=== PATIENT | female | born 1940 ===

== ENCOUNTER 2019-09-03 18:30 | Inpatient (IN) ==
[2019-09-03] MEDS: Doxycycline 100 MG CAPSULE PO SCH (21:20)
[2019-09-04] MEDS: Furosemide 20 MG TABLET PO SCH (08:19)
[2019-09-04] MEDS: Multivit/Ca/Min/Fe/FA 1 TAB TABLET PO SCH (08:19)
[2019-09-04] MEDS: Doxycycline 100 MG CAPSULE PO SCH ×2 (08:19→20:20)
[2019-09-05] MEDS: Doxycycline 100 MG CAPSULE PO SCH ×2 (09:00→19:59)
[2019-09-05] MEDS: Multivit/Ca/Min/Fe/FA 1 TAB TABLET PO SCH (09:00)
[2019-09-05] MEDS: Furosemide 20 MG TABLET PO SCH (09:00)
[2019-09-06] MEDS: *HR* Enoxaparin 30 MG/0.3 ML SYRINGE SQ SCH (05:59)
[2019-09-06] MEDS: Multivit/Ca/Min/Fe/FA 1 TAB TABLET PO SCH (08:35)
[2019-09-06] MEDS: Doxycycline 100 MG CAPSULE PO SCH ×2 (08:35→19:36)
[2019-09-06] MEDS: Bumetanide 1 MG TABLET PO SCH (08:35)
[2019-09-07] MEDS: *HR* Enoxaparin 30 MG/0.3 ML SYRINGE SQ SCH (06:24)
[2019-09-07] MEDS: Multivit/Ca/Min/Fe/FA 1 TAB TABLET PO SCH (09:01)
[2019-09-07] MEDS: Bumetanide 1 MG TABLET PO SCH (09:01)
[2019-09-07] MEDS: Doxycycline 100 MG CAPSULE PO SCH ×2 (09:01→21:27)
[2019-09-08] MEDS: *HR* Enoxaparin 30 MG/0.3 ML SYRINGE SQ SCH (05:46)
[2019-09-08] MEDS: Bumetanide 1 MG TABLET PO SCH (07:49)
[2019-09-08] MEDS: Doxycycline 100 MG CAPSULE PO SCH (07:49)
[2019-09-08] MEDS: Multivit/Ca/Min/Fe/FA 1 TAB TABLET PO SCH (07:49)
[2019-09-08] MEDS: Lactobacillus 1 EACH CAP.SPRINK PO SCH (20:39)
[2019-09-09] MEDS: *HR* Enoxaparin 30 MG/0.3 ML SYRINGE SQ SCH (06:30)
[2019-09-09 06:38] LABS: Hematocrit 35.3 % (35.3-44.9); Hemoglobin 11.5 g/dL (11.5-15.4); Mean Corpuscular HGB Conc 32.6 g/dL (31.6-35.5); Mean Corpuscular Hemoglobin 29.9 pg (28.0-33.3); Mean Corpuscular Volume 91.9 fL (83.0-100.0); Mean Platelet Volume 11.2 fL (9.4-12.4); Platelet Count 253 K/mcL (140-400); Red Blood Count 3.84 M/mcL (3.82-4.97)
[2019-09-09 06:48] LABS: Calcium 7.4 mg/dL (8.6-10.3); Magnesium 1.9 mg/dL (1.6-2.6); Potassium 4.1 mEq/L (3.5-5.1)
[2019-09-09 07:21] LABS: Basophils # 0.3 K/mcL (0.0-0.2); Monocytes # 0.3 K/mcL (0.0-1.3)
[2019-09-09 07:22] LABS: Platelet Estimate Normal (Normal); Smudge Cells Present (Not Present)
[2019-09-09] MEDS: Multivit/Ca/Min/Fe/FA 1 TAB TABLET PO SCH (07:44)
[2019-09-09] MEDS: Bumetanide 1 MG TABLET PO SCH (07:44)
[2019-09-09] MEDS: Lactobacillus 1 EACH CAP.SPRINK PO SCH ×2 (07:44→21:26)
[2019-09-10] MEDS ORDERED: Ondansetron ODT 4 MG TAB.RAPDIS SL PRN (04:27)
[2019-09-10] MEDS ORDERED: *HR* HYDROcodone/Acet 5/325 mg TABLET PO PRN (04:28)
[2019-09-10] MEDS: *HR* Enoxaparin 30 MG/0.3 ML SYRINGE SQ SCH (06:08)
[2019-09-10] MEDS: Bumetanide 1 MG TABLET PO SCH (10:15)
[2019-09-10] MEDS: Lactobacillus 1 EACH CAP.SPRINK PO SCH ×2 (10:15→19:52)
[2019-09-10] MEDS: Multivit/Ca/Min/Fe/FA 1 TAB TABLET PO SCH (10:15)
[2019-09-10] MEDS: Metoprolol XL (24 HR) Succ 25 MG TAB.ER.24H PO SCH (13:24)
[2019-09-11] MEDS: *HR* Enoxaparin 30 MG/0.3 ML SYRINGE SQ SCH (06:01)
[2019-09-11 07:49] LABS: Basophils % 0.3 %; Eosinophils # 0.1 K/mcL (0.0-0.6); Eosinophils % 0.5 %; Hematocrit 30.6 % (35.3-44.9); Immature Granulocytes % 0.3 % (0-4); Lymphocytes # 10.5 K/mcL (0.6-4.6); Lymphocytes % 66.3 %; Mean Corpuscular HGB Conc 32.7 g/dL (31.6-35.5); Mean Corpuscular Hemoglobin 29.7 pg (28.0-33.3); Mean Corpuscular Volume 90.8 fL (83.0-100.0); Mean Platelet Volume 10.7 fL (9.4-12.4); Monocytes # 0.4 K/mcL (0.0-1.3); Monocytes % 2.8 %; Neutrophils # 4.7 K/mcL (1.6-8.9); Nucleated Red Blood Cells 0.1 /100 WBC (0); Platelet Count 113 K/mcL (140-400); Red Blood Count 3.37 M/mcL (3.82-4.97); Red Cell Distribution Width 15.9 % (11.5-14.5); Segmented Neutrophils % 29.8 %; White Blood Count 15.8 K/mcL (4.3-11.1)
[2019-09-11 08:00] LABS: BUN/Creatinine Ratio 21 (6-26); Blood Urea Nitrogen 22 mg/dL (8-23); Calcium 7.3 mg/dL (8.6-10.3); Carbon Dioxide 28 mEq/L (23-29); Chloride 105 mEq/L (98-107); Glucose 84 mg/dL (70-105); Magnesium 1.9 mg/dL (1.6-2.6); Osmolality,Calculated 289 (280-300); Potassium 4.1 mEq/L (3.5-5.1); Sodium 138 mEq/L (136-145); eGFR For African Americans > 60 (> 60); eGFR For Non-African Americans 50 (> 60)
[2019-09-11 08:04] LABS: Basophils # 0.1 K/mcL (0.0-0.2)
[2019-09-11 08:08] LABS: Platelet Clumps Few (Not Present); Platelet Estimate Decreased (Normal)
[2019-09-11] MEDS: Multivit/Ca/Min/Fe/FA 1 TAB TABLET PO SCH (10:33)
[2019-09-11] MEDS: Lactobacillus 1 EACH CAP.SPRINK PO SCH ×2 (10:33→22:00)
[2019-09-11] MEDS: Metoprolol XL (24 HR) Succ 25 MG TAB.ER.24H PO SCH (10:33)
[2019-09-11] MEDS: Bumetanide 1 MG TABLET PO SCH (10:34)
[2019-09-12] MEDS: *HR* Enoxaparin 40 MG/0.4 ML SYRINGE SQ SCH (06:56)
[2019-09-12] MEDS: Lactobacillus 1 EACH CAP.SPRINK PO SCH ×2 (10:04→22:00)
[2019-09-12] MEDS: Multivit/Ca/Min/Fe/FA 1 TAB TABLET PO SCH (10:04)
[2019-09-12] MEDS: Bumetanide 1 MG TABLET PO SCH (10:04)
[2019-09-12] MEDS: Metoprolol XL (24 HR) Succ 25 MG TAB.ER.24H PO SCH (10:04)
[2019-09-13] MEDS: *HR* Enoxaparin 40 MG/0.4 ML SYRINGE SQ SCH (06:15)
[2019-09-13] MEDS: Lactobacillus 1 EACH CAP.SPRINK PO SCH ×2 (09:13→20:34)
[2019-09-13] MEDS: Metoprolol XL (24 HR) Succ 25 MG TAB.ER.24H PO SCH (09:13)
[2019-09-13] MEDS: Bumetanide 1 MG TABLET PO SCH (09:14)
[2019-09-13] MEDS: Multivit/Ca/Min/Fe/FA 1 TAB TABLET PO SCH (09:14)
[2019-09-14] MEDS: *HR* Enoxaparin 40 MG/0.4 ML SYRINGE SQ SCH (06:38)
[2019-09-14] MEDS: Bumetanide 1 MG TABLET PO SCH (08:33)
[2019-09-14] MEDS: Multivit/Ca/Min/Fe/FA 1 TAB TABLET PO SCH (08:33)
[2019-09-14] MEDS: Metoprolol XL (24 HR) Succ 25 MG TAB.ER.24H PO SCH (08:33)
[2019-09-14] MEDS: Lactobacillus 1 EACH CAP.SPRINK PO SCH ×2 (08:34→20:49)
[2019-09-15] MEDS: *HR* Enoxaparin 40 MG/0.4 ML SYRINGE SQ SCH (06:15)
[2019-09-15] MEDS: Bumetanide 1 MG TABLET PO SCH (07:58)
[2019-09-15] MEDS: Lactobacillus 1 EACH CAP.SPRINK PO SCH ×2 (07:58→20:13)
[2019-09-15] MEDS: Metoprolol XL (24 HR) Succ 25 MG TAB.ER.24H PO SCH (07:58)
[2019-09-15] MEDS: Multivit/Ca/Min/Fe/FA 1 TAB TABLET PO SCH (07:58)
[2019-09-16] MEDS: *HR* Enoxaparin 40 MG/0.4 ML SYRINGE SQ SCH (06:30)
[2019-09-16 07:30] LABS: Basophils # 0.1 K/mcL (0.0-0.2); Basophils % 0.4 %; Eosinophils % 1.1 %; Hematocrit 31.2 % (35.3-44.9); Hemoglobin 10.4 g/dL (11.5-15.4); Immature Granulocytes % 0.3 % (0-4); Lymphocytes # 8.4 K/mcL (0.6-4.6); Lymphocytes % 64.2 %; Mean Corpuscular HGB Conc 33.3 g/dL (31.6-35.5); Mean Corpuscular Hemoglobin 29.8 pg (28.0-33.3); Mean Corpuscular Volume 89.4 fL (83.0-100.0); Mean Platelet Volume 10.7 fL (9.4-12.4); Monocytes # 0.6 K/mcL (0.0-1.3); Monocytes % 4.2 %; Neutrophils # 3.9 K/mcL (1.6-8.9); Platelet Count 244 K/mcL (140-400); Red Blood Count 3.49 M/mcL (3.82-4.97); Red Cell Distribution Width 15.9 % (11.5-14.5); Segmented Neutrophils % 29.8 %; White Blood Count 13.1 K/mcL (4.3-11.1)
[2019-09-16 07:48] LABS: Calcium 7.6 mg/dL (8.6-10.3); Eosinophils # 0.1 K/mcL (0.0-0.6); Potassium 4.2 mEq/L (3.5-5.1)
[2019-09-16 08:10] LABS: Platelet Estimate Normal (Normal)
[2019-09-16] MEDS: Metoprolol XL (24 HR) Succ 25 MG TAB.ER.24H PO SCH (09:19)
[2019-09-16] MEDS: Bumetanide 1 MG TABLET PO SCH (09:19)
[2019-09-16] MEDS: Multivit/Ca/Min/Fe/FA 1 TAB TABLET PO SCH (09:19)
[2019-09-16] MEDS: Lactobacillus 1 EACH CAP.SPRINK PO SCH ×2 (09:19→20:35)
[2019-09-17] MEDS: *HR* Enoxaparin 30 MG/0.3 ML SYRINGE SQ SCH (06:27)
[2019-09-17] MEDS: Bumetanide 1 MG TABLET PO SCH (09:06)
[2019-09-17] MEDS: Lactobacillus 1 EACH CAP.SPRINK PO SCH ×2 (09:06→20:28)
[2019-09-17] MEDS: Metoprolol XL (24 HR) Succ 25 MG TAB.ER.24H PO SCH (09:06)
[2019-09-17] MEDS: Multivit/Ca/Min/Fe/FA 1 TAB TABLET PO SCH (09:07)
[2019-09-18] MEDS: *HR* Enoxaparin 30 MG/0.3 ML SYRINGE SQ SCH (06:22)
[2019-09-18] MEDS: Bumetanide 1 MG TABLET PO SCH (08:16)
[2019-09-18] MEDS: Multivit/Ca/Min/Fe/FA 1 TAB TABLET PO SCH (08:16)
[2019-09-18] MEDS: Lactobacillus 1 EACH CAP.SPRINK PO SCH ×2 (08:16→20:05)
[2019-09-18] MEDS: Metoprolol XL (24 HR) Succ 25 MG TAB.ER.24H PO SCH ×2 (08:17→12:30)
[2019-09-19] MEDS: *HR* Enoxaparin 30 MG/0.3 ML SYRINGE SQ SCH (06:23)
[2019-09-19] MEDS: Metoprolol XL (24 HR) Succ 25 MG TAB.ER.24H PO SCH (08:10)
[2019-09-19] MEDS: Lactobacillus 1 EACH CAP.SPRINK PO SCH ×2 (08:10→20:25)
[2019-09-19] MEDS: Bumetanide 1 MG TABLET PO SCH (08:10)
[2019-09-19] MEDS: Multivit/Ca/Min/Fe/FA 1 TAB TABLET PO SCH (08:10)
[2019-09-19 08:18] LABS: Calcium 7.4 mg/dL (8.6-10.3); Potassium 3.8 mEq/L (3.5-5.1)
[2019-09-19] MEDS: *HR* Digoxin 0.125 MG TABLET PO SCH (18:20)
[2019-09-20] MEDS: *HR* Enoxaparin 30 MG/0.3 ML SYRINGE SQ SCH (06:53)
[2019-09-20] MEDS: Bumetanide 1 MG TABLET PO SCH (08:10)
[2019-09-20] MEDS: Metoprolol XL (24 HR) Succ 25 MG TAB.ER.24H PO SCH (08:10)
[2019-09-20] MEDS: Lactobacillus 1 EACH CAP.SPRINK PO SCH ×2 (08:10→21:54)
[2019-09-20] MEDS: *HR* Digoxin 0.125 MG TABLET PO SCH (08:10)
[2019-09-20] MEDS: Multivit/Ca/Min/Fe/FA 1 TAB TABLET PO SCH (08:10)
[2019-09-21] MEDS: *HR* Enoxaparin 30 MG/0.3 ML SYRINGE SQ SCH (06:32)
[2019-09-21] MEDS: Bumetanide 1 MG TABLET PO SCH (08:37)
[2019-09-21] MEDS: Multivit/Ca/Min/Fe/FA 1 TAB TABLET PO SCH (08:37)
[2019-09-21] MEDS: *HR* Digoxin 0.125 MG TABLET PO SCH (08:37)
[2019-09-21] MEDS: Lactobacillus 1 EACH CAP.SPRINK PO SCH ×2 (08:37→20:00)
[2019-09-21] MEDS: Metoprolol XL (24 HR) Succ 25 MG TAB.ER.24H PO SCH (08:37)
[2019-09-22] MEDS: *HR* Enoxaparin 30 MG/0.3 ML SYRINGE SQ SCH (06:27)
[2019-09-22] MEDS: Multivit/Ca/Min/Fe/FA 1 TAB TABLET PO SCH (08:42)
[2019-09-22] MEDS: Bumetanide 1 MG TABLET PO SCH (08:42)
[2019-09-22] MEDS: Metoprolol XL (24 HR) Succ 25 MG TAB.ER.24H PO SCH (08:42)
[2019-09-22] MEDS: Lactobacillus 1 EACH CAP.SPRINK PO SCH ×2 (08:43→21:09)
[2019-09-22] MEDS: *HR* Digoxin 0.125 MG TABLET PO SCH (08:43)
[2019-09-23] MEDS: *HR* Enoxaparin 30 MG/0.3 ML SYRINGE SQ SCH (06:01)
[2019-09-23 06:50] LABS: Calcium 7.6 mg/dL (8.6-10.3); Digoxin 0.7 ng/mL (0.8-2.0); Magnesium 1.9 mg/dL (1.6-2.6); Potassium 3.8 mEq/L (3.5-5.1)
[2019-09-23] MEDS: Bumetanide 1 MG TABLET PO SCH (09:01)
[2019-09-23] MEDS: Metoprolol XL (24 HR) Succ 25 MG TAB.ER.24H PO SCH (09:01)
[2019-09-23] MEDS: Multivit/Ca/Min/Fe/FA 1 TAB TABLET PO SCH (09:01)
[2019-09-23] MEDS: Lactobacillus 1 EACH CAP.SPRINK PO SCH ×2 (09:01→20:35)
[2019-09-23] MEDS: *HR* Digoxin 0.125 MG TABLET PO SCH (09:02)
[2019-09-24] MEDS: *HR* Enoxaparin 30 MG/0.3 ML SYRINGE SQ SCH (06:21)
[2019-09-24] MEDS: Bumetanide 1 MG TABLET PO SCH (08:23)
[2019-09-24] MEDS: Lactobacillus 1 EACH CAP.SPRINK PO SCH ×2 (08:23→20:54)
[2019-09-24] MEDS: *HR* Digoxin 0.125 MG TABLET PO SCH (08:24)
[2019-09-24] MEDS: Metoprolol XL (24 HR) Succ 25 MG TAB.ER.24H PO SCH (08:24)
[2019-09-24] MEDS: Multivit/Ca/Min/Fe/FA 1 TAB TABLET PO SCH (08:24)
[2019-09-25] MEDS: *HR* Enoxaparin 30 MG/0.3 ML SYRINGE SQ SCH (06:28)
[2019-09-25] MEDS: Metoprolol XL (24 HR) Succ 25 MG TAB.ER.24H PO SCH (07:25)
[2019-09-25] MEDS: *HR* Digoxin 0.125 MG TABLET PO SCH (07:25)
[2019-09-25] MEDS: Bumetanide 1 MG TABLET PO SCH (07:25)
[2019-09-25] MEDS: Lactobacillus 1 EACH CAP.SPRINK PO SCH ×2 (07:25→19:46)
[2019-09-25] MEDS: Multivit/Ca/Min/Fe/FA 1 TAB TABLET PO SCH (07:25)
[2019-09-26] MEDS: *HR* Enoxaparin 30 MG/0.3 ML SYRINGE SQ SCH (05:50)
[2019-09-26] MEDS: *HR* Digoxin 0.125 MG TABLET PO SCH (08:34)
[2019-09-26] MEDS: Bumetanide 1 MG TABLET PO SCH (08:34)
[2019-09-26] MEDS: Lactobacillus 1 EACH CAP.SPRINK PO SCH ×2 (08:34→19:49)
[2019-09-26] MEDS: Metoprolol XL (24 HR) Succ 25 MG TAB.ER.24H PO SCH (08:35)
[2019-09-26] MEDS: Multivit/Ca/Min/Fe/FA 1 TAB TABLET PO SCH (08:35)
[2019-09-27] MEDS: *HR* Enoxaparin 30 MG/0.3 ML SYRINGE SQ SCH (05:52)
[2019-09-27] MEDS: Lactobacillus 1 EACH CAP.SPRINK PO SCH ×2 (07:48→19:34)
[2019-09-27] MEDS: *HR* Digoxin 0.125 MG TABLET PO SCH (07:48)
[2019-09-27] MEDS: Metoprolol XL (24 HR) Succ 25 MG TAB.ER.24H PO SCH (07:49)
[2019-09-27] MEDS: Multivit/Ca/Min/Fe/FA 1 TAB TABLET PO SCH (07:49)
[2019-09-27] MEDS: Bumetanide 1 MG TABLET PO SCH (07:49)
[2019-09-28] MEDS: *HR* Enoxaparin 30 MG/0.3 ML SYRINGE SQ SCH (06:11)
[2019-09-28] MEDS: Lactobacillus 1 EACH CAP.SPRINK PO SCH ×2 (08:33→20:12)
[2019-09-28] MEDS: Multivit/Ca/Min/Fe/FA 1 TAB TABLET PO SCH (08:34)
[2019-09-28] MEDS: Bumetanide 1 MG TABLET PO SCH (08:34)
[2019-09-28] MEDS: *HR* Digoxin 0.125 MG TABLET PO SCH (08:35)
[2019-09-28] MEDS: Metoprolol XL (24 HR) Succ 25 MG TAB.ER.24H PO SCH (08:35)
[2019-09-29] MEDS: *HR* Enoxaparin 30 MG/0.3 ML SYRINGE SQ SCH (06:18)
[2019-09-29 07:06] VITALS: BP 143/70
[2019-09-29] MEDS: Bumetanide 1 MG TABLET PO SCH (09:00)
[2019-09-29] MEDS: Multivit/Ca/Min/Fe/FA 1 TAB TABLET PO SCH (09:01)
[2019-09-29] MEDS: *HR* Digoxin 0.125 MG TABLET PO SCH (09:01)
[2019-09-29] MEDS: Metoprolol XL (24 HR) Succ 25 MG TAB.ER.24H PO SCH (09:01)
[2019-09-29] MEDS: Lactobacillus 1 EACH CAP.SPRINK PO SCH (09:01)
== END 2019-09-29 12:18 | DRG 699 ==
LOC: INPPIK 19:00
PROVIDERS: ADMIT Internal Medicine; ATTEND Internal Medicine